=== PATIENT | male | born 1950 | race Caucasian/White ===

== ENCOUNTER → 2024-06-21 14:14 | Outpatient (REF) | payer OTHER, SELFPAY | LOC: PAVMRI 14:14 | PROVIDERS: ATTENDING PHYSICIAN Orthopaedic Surgery; FAMILY PHYSICIAN Internal Medicine | DX: S42.302A Unspecified fracture of shaft of humerus, left arm, initial encounter for closed fracture (principal) | CPT/HCPCS: 73221 ==

== ENCOUNTER → 2024-12-06 16:09 | Outpatient (REF) | payer OTHER, SELFPAY | LOC: RAD 16:09 | PROVIDERS: ATTENDING PHYSICIAN Internal Medicine | DX: M25.562 Pain in left knee (principal) | CPT/HCPCS: 73560 ==